=== PATIENT | female | born 1985 | race Caucasian/White ===

== ENCOUNTER 2017-06-08 18:16 | Emergency (ER) | payer BC ==
[~2017-06-08] VITALS: Ht 160 cm; Wt 68.0 kg
[~2017-06-08 18:16] MED LIST: CIPROFLOXACIN500 M1 PO; NAPROXEN 500MG500 MG PO; NORCO 5-325 TA1 EACH PO; ZOFRAN ODT4 MG PO
[2017-06-08] MEDS ORDERED: NAPROSYN500 MG PO (18:56)
[2017-06-08] MEDS ORDERED: ULTRAM 50MG TAB50 MG PO (18:56)
[2017-06-08 19:13] VITALS: BP 122/64
== END 2017-06-08 19:00 | disposition home or self-care (01) ==
LOC: ER 18:16
DX: M65.4 Radial styloid tenosynovitis [de Quervain] (principal); F17.210 Nicotine dependence, cigarettes, uncomplicated; F10.99 Alcohol use, unspecified with unspecified alcohol-induced disorder

== ENCOUNTER 2019-01-07 07:47 | Emergency (ER) | payer BC ==
[~2019-01-07] VITALS: Ht 162.6 cm; Wt 63.5 kg
[~2019-01-07 07:47] MED LIST changes: +LEVSIN-SL0.125 MG SL; +NAPROSYN500 MG PO; +ONDANSETRON HCL4 M2 PO; +ULTRAM 50MG TAB50 MG PO
[2019-01-07 07:52] VITALS: BP 135/89
== END 2019-01-07 08:36 | disposition home or self-care (01) ==
LOC: ER 07:47
DX: J02.9 Acute pharyngitis, unspecified (principal); J06.9 Acute upper respiratory infection, unspecified; F17.210 Nicotine dependence, cigarettes, uncomplicated